=== PATIENT | male | born 1985 | race Caucasian/White ===

== ENCOUNTER 2016-07-24 20:43 | Emergency (ER) | payer OTHER ==
[2016-07-24 20:47] VITALS: BP 139/81; PULSE 113; TEMP 98.6; BMI 28.5
--- NOTE | 2016-07-24 23:32 | PDOC ---
History of Present Illness - General Chief Complaint: Laceration Stated Complaint: CUT TO THE HAND Time Seen by Provider: 07/24/16 21:50 - History of Present Illness Initial Comments: 07/24/16 23:32 CHIEF COMPLAINT: HISTORY OF PRESENT ILLNESS: 31 yo M with no PMH present sto Ed with lac to R hand. Patient states he was cutting the "radiator hose" and sliced his hand. Patient states he just recently got a tetanus shot this month at a physical. No recent travel or sick contacts. PAST MEDICAL HISTORY: Denies past medical history FAMILY HISTORY: Denies SOCIAL HISTORY: Lives at home with ____. Occupation: . Denies tobacco, alcohol, illicit drug use. SURGICAL HISTORY: Denies ALLERGIES: No known drug allergies REVIEW OF SYSTEMS General/Constitutional: Denies fever or chills. Denies weakness, weight change. HEENT: Denies change in vision. Denies ear pain or discharge. Denies sore throat. Cardiovascular: Denies chest pain or shortness of breath. Respiratory: Denies cough, wheezing, or hemoptysis. Gastrointestinal: Denies nausea, vomiting, diarrhea or constipation. Denies rectal bleeding. Genitourinary: Denies dysuria, frequency, or change in urination. Musculoskeletal: Denies joint or muscle swelling or pain. Denies neck or back pain. Skin and breasts: Denies rash or easy bruising. Neurologic: Denies headache, vertigo, loss of consciousness, or loss of sensation. Psychiatric: Denies depression or anxiety. Endocrine: Denies increased thirst. Denies abnormal weight change. Hematologic/Lymphatic: Denies anemia, easy bleeding, or history of blood clots. Allergic/Immunologic: Denies hives or skin allergy. Denies latex allergy. PHYSICAL EXAM General Appearance: Well-appearing, appropriately dressed. No apparent distress , no intoxication. HEENT: EOMI, PERRLA, normal ENT inspection, normal voice, TMs normal, pharynx normal. No conjunctival pallor. No photophobia, scleral icterus. Neck: Supple. Trachea midline. No tenderness, rigidity, carotid bruit, stridor , lymphadenopathy, or thyromegaly. Respiratory/Chest: Lungs CTAB. No shortness of breath, chest tenderness, respiratory distress, accessory muscle use. No crackles, rales, rhonchi, stridor , wheezing, dullness Cardiovascular: RRR. S1, S2. No JVD, murmur, bradycardia, tachycardia. Vascular Pulses: Dorsalis-Pedis (R): 2+, Dorsalis-Pedis (L): 2+ Gastrointestinal/Abdominal: Normal bowel sounds. Abdomen soft, non-distended. No tenderness or rebound tenderness. No organomegaly, pulsatile mass, guarding , hernia, hepatomegaly, splenomegaly. Lymphatic: No adenopathy, tenderness. Musculoskeletal/Extremities: Normal inspection. FROM of all extremities, normal capillary refill. Pelvis Stable. No CVA tenderness. No tenderness to extremities, pedal edema, swelling, erythema or deformity. Integumentary: Appropriate color, dry, warm. No cyanosis, erythema, jaundice or rash Neurologic: basketball scout II-XII intact. Fully oriented, alert. Appropriate mood/affect. Motor strength 5/5. No appreciable EOM palsy, facial droop or sensory deficit. Past History - Past Medical History Allergies/Adverse Reactions: Allergies Allergy/AdvReac Type Severity Reaction Status Date / Time No Known Allergies Allergy Verified 07/24/16 20:45 - Psycho/Social/Smoking Cessation Hx Suicidal Ideation: No Smoking History: Current every day smoker Number of Cigarettes Smoked Daily: 6 Information on smoking cessation initiated: No *Physical Exam - Vital Signs Last Vital Signs Temp Pulse Resp BP Pulse Ox 98.6 F 113 H 18 139/81 97 07/24/16 20:45 07/24/16 20:45 07/24/16 20:45 07/24/16 20:45 07/24/16 20:45 Procedures - Consent Consent obtained: Verbal - Laceration/Wound Repair Right Volar Hand Wound Length: 2.6 to 5.0 cm Wound Explored: clean Wound's Depth, Shape: linear Irrigated w/ Saline: Yes Betadine Prep: Yes Anesthesia: 1% Lidocaine Amount of Anesthetic (ccs): 5 Wound Repaired With: Sutures Suture Size/Type: 5:0 Number of Sutures: 7 Sterile Dressing Applied: Yes (xeroform, kerlix, deep bandage) Medical Decision Making - Medical Decision Making 07/24/16 23:33 31 yo M with no PMH present sto Ed with lac to R hand. lac repair (see procedure note) *DC/Admit/Observation/Transfer Diagnosis at time of Disposition: Laceration of right hand Qualifiers: Encounter type: initial encounter Foreign body presence: without foreign body Qualified Code(s): S61.411A - Laceration without foreign body of right hand, initial encounter - Discharge Dispostion Disposition: HOME Condition at time of disposition: Stable Admit: No - Patient Instructions Printed Discharge Instructions: DI for Laceration Repair Additional Instructions: Keep clean and dry for 24-48 hours. Please return in 10-14 days for suture removal as discussed. If the wound site becomes red, hot, swollen, or painful, or you develop fever, nausea, vomiting, or diarrhea, please return to the ER.
== END 2016-07-24 23:38 | disposition home or self-care (01) ==
LOC: JER 20:43 → JERFT 20:43 → JER 23:38
PROC: 0HQFXZZ Repair Right Hand Skin, External Approach (ICD-10-PCS; principal; 2016-07-24)
DX: S61.411A Laceration without foreign body of right hand, initial encounter (principal); W26.0XXA Contact with knife, initial encounter; Y93.89 Activity, other specified; Y92.89 Other specified places as the place of occurrence of the external cause
CPT/HCPCS: 99283-25

== ENCOUNTER 2022-02-27 15:54 | Emergency (ER) | payer OTHER ==
[2022-02-27 16:09] VITALS: BP 140/94; PULSE 89; RESP 18; TEMP 97.9; BMI 25.0
[2022-02-27] MEDS ORDERED: METHOCARBAMOL 500 MG TABLET PO ONE (16:37)
[2022-02-27] MEDS ORDERED: KETOROLAC TROMETHAMINE 30 MG/1 ML VIAL IM ONE (16:37)
[2022-02-27] MEDS ORDERED: METHOCARBAMOL 500 MG TABLET ONE (16:38)
[2022-02-27] MEDS ORDERED: KETOROLAC TROMETHAMINE 30 MG/1 ML VIAL ONE (16:39)
== END 2022-02-27 17:27 | disposition home or self-care (01) ==
LOC: JERFT 15:54
PROC: 3E0233Z Introduction of Anti-inflammatory into Muscle, Percutaneous Approach (ICD-10-PCS; principal; 2022-02-27)
DX: M25.511 Pain in right shoulder (principal); M54.2 Cervicalgia; V43.52XA Car driver injured in collision with other type car in traffic accident, initial encounter
CPT/HCPCS: 72050-TC-FY; 73030-TC-RT-FY; 99284-25

== ENCOUNTER 2022-08-30 21:39 | Emergency (ER) | payer OTHER ==
[2022-08-30 21:44] VITALS: BP 118/83; PULSE 110; RESP 17; TEMP 97.9; BMI 29.1
[2022-08-30] MEDS ORDERED: ACETAMINOPHEN 325 MG TABLET (FP) PO ONE (23:23)
[2022-08-30] MEDS ORDERED: LIDOCAINE 1%/EPI 1:100000 (20 ML MULTI DOSE VIAL) PNB ONE (23:24)
[2022-08-30] MEDS ORDERED: ACETAMINOPHEN 325 MG TABLET (FP) ONE (23:27)
[2022-08-30] MEDS ORDERED: LIDOCAINE 1%/EPI 1:100000 (50 ML MULTI DOSE VIAL) ONE (23:32)
[2022-08-30] MEDS ORDERED: DIPHTH,PERTUSS(ACELL),TET 0.5 ML DISP.SYRIN IM ONE (23:52)
[2022-08-31] MEDS ORDERED: DIPHTH,PERTUSS(ACELL),TET 0.5 ML DISP.SYRIN IM ONE (00:05)
== END 2022-08-31 00:47 | disposition home or self-care (01) ==
LOC: JER 21:39
PROC: 0HQKXZZ Repair Right Lower Leg Skin, External Approach (ICD-10-PCS; principal; 2022-08-30)
PROC: 3E0234Z Introduction of Serum, Toxoid and Vaccine into Muscle, Percutaneous Approach (ICD-10-PCS; 2022-08-30)
DX: S81.811A Laceration without foreign body, right lower leg, initial encounter (principal); W25.XXXA Contact with sharp glass, initial encounter
CPT/HCPCS: 12002-25; 73590-TC-RT-FY; 90471; 90715; 99283-25

== ENCOUNTER 2022-10-02 13:19 | Emergency (ER) | payer OTHER ==
[2022-10-02 13:40] VITALS: BP 140/93; PULSE 110; RESP 18; TEMP 98.7; BMI 26.6
[2022-10-02] MEDS ORDERED: LIDOCAINE HCL/PF 1% SDV 5ML VIAL ONE (14:15)
[2022-10-02 15:22] LABS: BASO % 0.4 % (0-2.0); EOS % 0.6 % (0-4.5); HEMATOCRIT 41.2 % (35.4-49); HEMOGLOBIN 13.5 GM/dL (11.7-16.9); LYMPH % 12.9 % (8-40); MCH 30.8 pg (25.7-33.7); MCHC 32.7 g/dl (32.0-35.9); MEAN CELL VOLUME 94.3 fl (80-96); MEAN PLT VOLUME 8.2 fl (7.5-11.1); MONO % 6.6 % (3.8-10.2); NEUT % 79.5 % (42.8-82.8); PLATELET COUNT 388 10^3/uL (134-434); RBC 4.37 M/mm3 (4.00-5.60); RDW 13.2 % (11.9-15.9); WHITE BLOOD COUNT 9.5 K/mm3 (4.0-10.0)
[2022-10-02 15:29] LABS: INR 1.08 (0.83-1.09); PROTHROMBIN TIME (PATIENT) 12.5 SEC (9.7-13.0)
[2022-10-02 15:31] LABS: ACTIVATED PTT 28.1 SECONDS (25.2-36.5)
[2022-10-02 15:53] LABS: EPI CELLS 6 /uL (0-25.1); HYALINE CASTS 1 /uL (0-3.1); PH,URINE 6.5 (5.0-8.0); URINE APPEARANCE CLEAR; URINE BACTERIA 16 /uL (0-1359); URINE BILIRUBIN NEGATIVE (NEGATIVE); URINE COLOR YELLOW; URINE GLUCOSE (UA) NEGATIVE (NEGATIVE); URINE KETONE NEGATIVE (NEGATIVE); URINE LEUK ESTERASE NEGATIVE (NEGATIVE); URINE NITRITE NEGATIVE (NEGATIVE); URINE PROTEIN TRACE (NEGATIVE); URINE RBC 30 /uL (0-23.9); URINE UROBILINOGEN 0.2 mg/dL (0.2-1.0); URINE WBC 11 /uL (0-25.8)
[2022-10-02 15:55] LABS: CALCIUM 9.1 mg/dL (8.5-10.1)
[2022-10-02 15:56] LABS: ALBUMIN 4.2 g/dl (3.4-5.0); BLOOD UREA NITROGEN 10.2 mg/dL (7-18)
[2022-10-02 15:59] LABS: CREATININE 0.9 mg/dL (0.55-1.3)
[2022-10-02 16:01] LABS: BILIRUBIN,TOTAL 0.7 mg/dL (0.2-1); TOT PROT 8.2 g/dl (6.4-8.2)
== END 2022-10-02 17:45 | disposition home or self-care (01) ==
LOC: JER 13:19
DX: S31.114A Laceration without foreign body of abdominal wall, left lower quadrant without penetration into peritoneal cavity, initial encounter (principal); Y04.0XXA Assault by unarmed brawl or fight, initial encounter
CPT/HCPCS: 36415; 74177-TC; 80053; 81003; 85025; 85610; 85730; 86850; 86900; 86901; 99285-25; Q9967

== ENCOUNTER 2022-11-10 16:39 | Emergency (ER) | payer OTHER ==
[2022-11-10 16:52] VITALS: BP 116/77; PULSE 94; RESP 17; TEMP 98; BMI 25.8
[2022-11-10] MEDS ORDERED: predniSONE 20 MG TABLET (UD) PO ONE (18:39)
[2022-11-10] MEDS ORDERED: guaiFENesin 200 MG/10 ML 10 ML UNIT-DOSE CUPS PO ONE (18:39)
[2022-11-10] MEDS ORDERED: ALBUTEROL SO4 HFA INHALER IH ONE ×2 (18:40→18:47)
[2022-11-10] MEDS ORDERED: predniSONE 20 MG TABLET (UD) ONE (18:47)
[2022-11-10] MEDS ORDERED: guaiFENesin/D-METHORPHAN HB 10 ML UNIT-DOSE CUPS ONE (18:48)
== END 2022-11-10 19:11 | disposition home or self-care (01) ==
LOC: JERFT 16:39
PROC: 3E0F7GC Introduction of Other Therapeutic Substance into Respiratory Tract, Via Natural or Artificial Opening (ICD-10-PCS; principal; 2022-11-10)
DX: R05.9 Cough, unspecified (principal); J40 Bronchitis, not specified as acute or chronic
CPT/HCPCS: 71046-TC-FY; 99283-25